=== PATIENT | male | born 1965 | race African-American/Black ===

== ENCOUNTER 2020-05-29 17:37 | Emergency (ER) | payer OTHER ==
[~2020-05-29] VITALS: Ht 162.6 cm; Wt 84.0 kg
[2020-05-29 17:45] VITALS: BP 107/75
--- NOTE | 2020-05-29 18:28 | PHYS DOC ---
Past History Past Medical History: High Cholesterol, Heart Disease, Hypertension Past Surgical History: Other Additional Past Surgical Histo: CABG, ORIF left leg, right leg Alcohol Use: None Social History Narrative: Last used marijuana General Adult EDM: Chief Complaint: LOWER EXTREMITY SWELLING HPI: HPI: Patient is a 55-year-old male coming in for pain and swelling in his left calf, behind his knee, also pain in his foot. Pain is been going on for a few days. Patient states he has hardware in his foot and feels like something has come loose. No shortness of breath, cough, chest pain or pressure. Patient denies any history of DVT and is currently taking Plavix which he says he is compliant on for his heart. Denies any recent trauma to the leg. Review of Systems: Review of Systems: Constitutional: Denies fever or chills Eyes: Denies change in visual acuity HENT: Denies nasal congestion or sore throat Respiratory: Denies cough or shortness of breath Cardiovascular: Denies chest pain or edema GI: Denies abdominal pain, nausea, vomiting, bloody stools or diarrhea : Denies dysuria Musculoskeletal: Calf and lower leg pain on left, left foot pain. Integument: Denies rash Neurologic: Denies headache, focal weakness or sensory changes Endocrine: Denies polyuria or polydipsia Lymphatic: Denies swollen glands Psychiatric: Denies depression or anxiety Allergies: Allergies: Allergies Coded Allergies Type Severity Reaction Last Updated Verified No Known Drug Allergies 05/29/20 No Physical Exam: PE: Constitutional: Well developed, well nourished, no acute distress, non-toxic appearance. [] HENT: Normocephalic, atraumatic, bilateral external ears normal, oropharynx moist, no oral exudates, nose normal. [] Eyes: PERRLA, EOMI, conjunctiva normal, no discharge. [] Neck: Normal range of motion, no tenderness, supple, no stridor. [] Cardiovascular:Heart rate regular rhythm, no murmur [] Lungs & Thorax: Bilateral breath sounds clear to auscultation [] Abdomen: Bowel sounds normal, soft, no tenderness, no masses, no pulsatile masses. [] Skin: Warm, dry, no erythema, no rash. [] Back: No tenderness, no CVA tenderness. [] Extremities: Left calf tenderness, left popliteal fossa tenderness, is a positive Homans' sign. Neurologic: Alert and oriented X 3, normal motor function, normal sensory funct ion, no focal deficits noted. [] Psychologic: Affect normal, judgement normal, mood normal. [] Current Patient Data: Vital Signs: Vital Signs Date Time Temp Pulse Resp B/P (MAP) Pulse Ox O2 Delivery O2 Flow Rate FiO2 05/29/20 17:45 98.4 72 16 107/75 (86) 96 EKG: EKG: [] Radiology/Procedures: Radiology/Procedures: Exam: Left foot 3 views INDICATION: Left foot pain with swelling TECHNIQUE: Frontal, lateral and oblique views left foot Comparisons: None FINDINGS: Arthrodesis changes at the midfoot. Diffuse osteopenia. No acute fracture is identified. Joint spaces are otherwise well-maintained. IMPRESSION: Postoperative changes at the midfoot without acute osseous abnormality identified. EXAM: Left lower extremity venous Doppler sonogram. HISTORY: Pain and swelling. TECHNIQUE: Arias scale and color Doppler sonographic evaluation of the left lower extremity veins with spectral waveform analysis was performed. FINDINGS: There is normal color flow, normal compressibility and there are normal spectral waveforms in the common femoral, superficial femoral, popliteal, posterior tibial and greater saphenous veins. There is lower extremity soft tissue edema. The calf veins are not well seen. IMPRESSION: No Doppler evidence of lower extremity deep venous thrombosis, with limited evaluation of the calf veins due to soft tissue edema.[] Heart Score: Risk Factors: Risk Factors: DM, Current or recent (<one month) smoker, HTN, HLP, family history of CAD, obesity. Risk Scores: Score 0 - 3: 2.5% MACE over next 6 weeks - Discharge Home Score 4 - 6: 20.3% MACE over next 6 weeks - Admit for Clinical Observation Score 7 - 10: 72.7% MACE over next 6 weeks - Early Invasive Strategies Course & Med Decision Making: Course & Med Decision Making Pertinent Labs and Imaging studies reviewed. (See chart for details) Imaging negative for DVT, on review of ultrasound images it appears like he might have a Santos's cyst. Discussed with patient he states that he has been told he has a cyst behind his knee in the past. Cyst was not noted in the radiology report. Patient on Plavix low likelihood of DVT. Given instructions to follow-up with orthopedics and elevate lower extremity to help with edema [] Dragon Disclaimer: Dragon Disclaimer: This electronic medical record was generated, in whole or in part, using a voice recognition dictation system. Departure Departure: Impression: Primary Impression: Lower extremity pain, left Disposition: 01 DC HOME SELF CARE/HOMELESS Condition: STABLE Referrals: PCP,MESHA (PCP) [facility] Patient Instructions: Santos's Cyst Scripts Hydrocodone Bit/Acetaminophen (NORCO 5-325 TABLET) 1 Each Tablet 1 TAB PO TID for pain for 4 Days, #12 TAB Prov: RENY DOWLING MD 05/29/20 RENY DOWLING MD May 29, 2020 18:28
[2020-05-29 19:04] LABS: BASO % 0 % (0-3); EOS # 0.3 x10^3/uL (0.0-0.7); EOS % 5 % (0-3); HEMATOCRIT 36.2 % (39.0-53.0); HEMOGLOBIN 12.2 g/dL (13.0-17.5); LYMPH % 37 % (24-48); MEAN CORPUSCULAR HEMOGLOBIN 34 pg (25-35); MEAN CORPUSCULAR HGB CONC 34 g/dL (31-37); MEAN CORPUSCULAR VOLUME 100 fL (79-100); MONO # 0.9 x10^3/uL (0.0-1.1); MONO % 17 % (0-9); NEUT # 2.2 x10^3uL (1.8-7.7); NEUT % 40 % (31-73); PLATELET COUNT 257 x10^3/uL (140-400); RED BLOOD COUNT 3.63 x10^6/uL (4.30-5.70); RED CELL DISTRIBUTION WIDTH 13.7 % (11.5-14.5); WHITE BLOOD COUNT 5.4 x10^3/uL (4.0-11.0)
[2020-05-29 19:09] LABS: CALCIUM 8.7 mg/dL (8.5-10.1); CREATININE 1.1 mg/dL (0.7-1.3); GFR 84.1; POTASSIUM 3.8 mmol/L (3.5-5.1)
[2020-05-29 19:15] LABS: ALBUMIN 3.4 g/dL (3.4-5.0); ALBUMIN/GLOBULIN RATIO 0.9 (1.0-1.7); TOTAL BILIRUBIN 0.6 mg/dL (0.2-1.0)
--- NOTE | 2020-05-29 19:33 | RAD ---
Exam: Left foot 3 views INDICATION: Left foot pain with swelling TECHNIQUE: Frontal, lateral and oblique views left foot Comparisons: None FINDINGS: Arthrodesis changes at the midfoot. Diffuse osteopenia. No acute fracture is identified. Joint spaces are otherwise well-maintained. IMPRESSION: Postoperative changes at the midfoot without acute osseous abnormality identified. Electronically signed by: Briseida Jane MD (05/29/2020 7:30 PM) DANIEL
--- NOTE | 2020-05-29 20:22 | RAD ---
EXAM: Left lower extremity venous Doppler sonogram. HISTORY: Pain and swelling. TECHNIQUE: Arias scale and color Doppler sonographic evaluation of the left lower extremity veins with spectral waveform analysis was performed. FINDINGS: There is normal color flow, normal compressibility and there are normal spectral waveforms in the common femoral, superficial femoral, popliteal, posterior tibial and greater saphenous veins. There is lower extremity soft tissue edema. The calf veins are not well seen. IMPRESSION: No Doppler evidence of lower extremity deep venous thrombosis, with limited evaluation of the calf veins due to soft tissue edema. Electronically signed by: Krystal Wilde MD (05/29/2020 8:20 PM) [facility]
[2020-05-29] MEDS ORDERED: HYDR-3165 PO (20:43)
[2020-05-29] MEDS ORDERED: HYDROcodone/APAP 5/325MG 1 TAB TABLET PO ONE (20:45)
[2020-05-29] MEDS ORDERED: HYDROcodone/APAP 5/325MG 1 TAB TABLET ONE (20:48)
== END 2020-05-29 20:59 | disposition home or self-care (01) ==
LOC: ER 17:37
DX: M79.662 Pain in left lower leg (principal); M79.672 Pain in left foot; E78.00 Pure hypercholesterolemia, unspecified; I11.9 Hypertensive heart disease without heart failure; Z95.1 Presence of aortocoronary bypass graft
CPT/HCPCS: 36415; 73630; 80053; 85025; 85379; 85610; 93971; 99285